=== PATIENT | female | born 1995 | race Caucasian/White ===

== ENCOUNTER 2022-09-02 09:03 | Inpatient (IN) | payer OTHER ==
[~2022-09-02] VITALS: Ht 172.7 cm; Wt 68.0 kg
[~2022-09-02 09:03] MED LIST: IBUP-1969 PO; ONDA-8 TL
--- NOTE | 2022-09-02 09:09 | NUR ---
Patient to ER bed 6 to gown for evaluation. Side rails up. Report given to .
[2022-09-02 09:10] VITALS: BP_SYST 106
--- NOTE | 2022-09-02 09:10 | NUR ---
PT STATES STOMACH FLU LIKE SYMPTOMS SINCE 08/29, OTHER FAMILY MEMBERS WITH SAME. AWOKE TODAY WITH RIGHT LOWER QUADRANT PAIN, STABBING/SHARP PAIN. NON-RADIATING. SUDDEN ONSET TODAY.
--- NOTE | 2022-09-02 09:10 | NUR ---
ER at bedside examining patient.
[2022-09-02] MEDS ORDERED: MORPHINE 4 MG INJ. 4 MG/ML VIAL IVP ONE ×2 (09:30→11:15)
[2022-09-02] MEDS ORDERED: NACL 0.9% 1,000 ML IV ONE (09:30)
[2022-09-02] MEDS ORDERED: ONDANSETRON HCL 4 MG/2 ML VIAL IVP ONE ×2 (09:30→13:30)
[2022-09-02 09:41] LABS: BASOPHILS % (AUTO) 0.2 % (0.0-2.0); HEMATOCRIT 41.8 % (36-48); HEMOGLOBIN 14.7 g/dL (12.0-16.0); LYMPHOCYTES # (AUTO) 0.8 K/uL (1.0-5.5); LYMPHOCYTES % (AUTO) 7.7 % (20.5-51.5); MEAN CORPUSCULAR HEMOGLOBIN 32 pg (27-31); MEAN CORPUSCULAR HGB CONC 35 % (32-36); MEAN CORPUSCULAR VOLUME 90 fL (79.0-98.0); MONOCYTES # (AUTO) 0.5 K/uL (0.0-1.0); MONOCYTES % (AUTO) 4.6 % (1.7-9.3); NEUTROPHILS # (AUTO) 9.5 K/uL (1.8-7.7); NEUTROPHILS % (AUTO) 87.5 % (40.0-70.0); PLATELET COUNT (AUTO) 160 K/uL (130-430); RED BLOOD CELL COUNT(AUTO) 4.65 MIL/uL (4.2-6.2); RED CELL DISTRIBUTION WIDTH 13.2 % (9.0-15.0); WHITE BLOOD COUNT (AUTO) 10.9 K/uL (4.8-10.8)
[2022-09-02] MEDS ORDERED: KETOROLAC TROMETHAMINE 15 MG VIAL IVP ONE (10:00)
--- NOTE | 2022-09-02 10:00 | NUR ---
PT STATES ONLY SLIGHT RELIEF FROM MORPHINE, DR RICHARDS AT BEDSIDE FOR RE-EVALUATION. GIVEN TORADOL ORDERED.
[2022-09-02 10:15] LABS: CALCIUM 8.6 mg/dL (8.4-11.0); CREATININE 0.66 mg/dL (0.55-1.30)
[2022-09-02 10:19] LABS: ALBUMIN 4.2 g/dL (3.4-4.8); TOTAL BILIRUBIN 0.8 mg/dL (0.0-1.0)
--- NOTE | 2022-09-02 10:28 | NUR ---
PT TAKEN TO RADIOLOGY VIA REINALDO
--- NOTE | 2022-09-02 10:37 | NUR ---
RETURNED TO ROOM FROM RADIOLOGY
[2022-09-02 10:52] LABS: BILIRUBIN,URINE NEGATIVE (NEGATIVE); BLOOD, URINE NEGATIVE (NEGATIVE); COLOR,URINE YELLOW (YELLOW); GLUCOSE,URINE NEGATIVE (NEGATIVE); KETONES,URINE TRACE (NEGATIVE); LEUKOCYTE ESTERASE ,URINE NEGATIVE (NEGATIVE); NITRITE, URINE NEGATIVE (NEGATIVE); PROTEIN URINE NEGATIVE (NEGATIVE); UROBILINOGEN,URINE 0.2 (0.2-1.0)
--- NOTE | 2022-09-02 11:02 | NUR ---
DR RICHARDS IN FOR RE-ASSESSMENT. AWAITING FURTHER ORDERS
[2022-09-02 11:13] LABS: CLARITY/URINE CLEAR (CLEAR)
[2022-09-02] MEDS ORDERED: ONDANSETRON HCL 4 MG/2 ML VIAL IVP PRN ×2 (11:30→17:45)
[2022-09-02] MEDS ORDERED: MORPHINE 4 MG INJ. 4 MG/ML VIAL IVP PRN (11:30)
--- NOTE | 2022-09-02 11:34 | NUR ---
Admit bed requested Patient will be admitted to care of . Admitted to MED SURG unit. Diagnosis ACUTE APPENDICITIS Inpatient (Yes or No) Y Observation (Yes or No) N Orientation concerns or request close to nursing station (Yes or No) N Covid Status PENDING On vent or bipap N Isolation requirements N Needs a sitter N From Home (Yes or if No enter name of facility) YES Requires Dialysis (Yes or No) N Med Rec Completed (Yes of No) Y
--- NOTE | 2022-09-02 11:35 | NUR ---
PT TAKES NO HOME MEDICATIONS
--- NOTE | 2022-09-02 11:40 | NUR ---
DR RICHARDS EXPLAINING RESULTS OF CT TO PT AND PTS MOTHER.
[2022-09-02] MEDS ORDERED: PIPERACILLIN/TAZOBACTAM 3.375 GM/VIAL (ZOSYN) IV ONE (11:51)
--- NOTE | 2022-09-02 11:58 | NUR ---
LAB AT BEDSIDE DRAWING BLOOD CULTURES.
--- NOTE | 2022-09-02 12:22 | NUR ---
SPOKE WITH DR TOBIN AND DR MOLINA. DR TOBIN SPEAKING WITH DR RICHARDS AT THIS TIME. PTS LAST INTAKE WAS YESTERDAY AT 2100
--- NOTE | 2022-09-02 12:34 | NUR ---
DR MOLINA AT BEDSIDE SPEAKING WITH PT.
--- NOTE | 2022-09-02 13:22 | NUR ---
ASSISTED UP TO RESTROOM, STEADY GAIT, PT COMPLAINS OF NAUSEA. DR RICHARDS NOTIFIED. AWAITING ORDERS
[2022-09-02 13:42] LABS: PROTHROMBIN TIME 9.9 SECS (9.5-12.5)
--- NOTE | 2022-09-02 13:47 | NUR ---
SURGERY IS SCHEDULED FOR [address] TOBIN
[2022-09-02] MEDS: PIPERACILLIN/TAZO 3.375 GM in NS 50 ML IV SCH (13:54)
--- NOTE | 2022-09-02 14:10 | NUR ---
RESTING QUIETLY, FAMILY AT BEDSIDE FOR SUPPORT
--- NOTE | 2022-09-02 15:26 | NUR ---
OR STAFF HERE TO TAKE PT TO SURGERY
--- NOTE | 2022-09-02 15:42 | NUR ---
PT IN ER STILL WAITING FOR OR CREW AND
--- NOTE | 2022-09-02 16:09 | NUR ---
TAKEN TO OPERATING ROOM BY OR STAFF, MOTHER SHOWN TO WAITING ROOM.
[2022-09-02] MEDS ORDERED: NS IRRIG SOLN 1000 ML IR ONE (16:35)
[2022-09-02] MEDS ORDERED: ONDANSETRON HCL 4 MG/2 ML VIAL ONE (16:35)
[2022-09-02] MEDS ORDERED: BUPIVACAINE /PF 0.5% 30 ML VIAL ONE (16:35)
[2022-09-02] MEDS ORDERED: MIDAZOLAM HCL 2 MG/2 ML VIAL (VERSED) ONE (16:35)
[2022-09-02] MEDS ORDERED: NS 1000 ML IV.SOLN IV ONE (16:35)
[2022-09-02] MEDS ORDERED: SEVOFLURANE 15 MIN GAS INH ONE (16:35)
[2022-09-02] MEDS ORDERED: LIDOCAINE/EPI MPF 1%1:200000 30 ML VIAL ONE (16:35)
[2022-09-02] MEDS ORDERED: fentaNYL CITRATE/PF 100 MCG/2 ML AMP ONE (16:35)
[2022-09-02] MEDS ORDERED: ROCURONIUM BROMIDE 10 MG/ML (ZEMURON) ONE ×2 (16:35→16:55)
[2022-09-02] MEDS ORDERED: PROPOFOL 200MG/ 20ML VIAL (DIPRIVAN) IV ONE (16:35)
--- NOTE | 2022-09-02 17:12 | NUR ---
REPORT GIVEN TO YUMIKO ON MED SURG FLOOR, HE WILL RECEIVE PT AFTER SURGERY
[2022-09-02] MEDS ORDERED: KETOROLAC TROMETHAMINE 30 MG VIAL IVP PRN (17:45)
[2022-09-02] MEDS ORDERED: NALOXONE HCL 0.4 MG/ML AMP (NARCAN) IVP PRN (17:45)
[2022-09-02] MEDS ORDERED: HYDROcodone/ACETAMIN 5-325 MG TAB (NORCO/ VICODIN) PO PRN (17:45)
[2022-09-02] MEDS: D5LR 1,000 ML IV SCH ×2 (18:10→21:41)
--- NOTE | 2022-09-02 19:10 | NUR ---
ADMISSION NOTE Received patient from ER via gurney, received report from RN. Patient admitted with diagnosis of Acute Appendicitis, s/p laprascopic appendectomy. Patient oriented to hospital routine, call light, toileting and safety-patient verbalized understanding. Report given to SUSIE Bergman at shift change.
--- NOTE | 2022-09-02 19:30 | NUR ---
CHANGE OF SHIFT; endorsed by day shift nurse Flavio S/P lap appy today. pt. awake, alert and oriented. family members at bedside. oriented to room, use of call light.IVF infusing on rt. arm.
[2022-09-02 19:40] VITALS: BP_SYST 92
[2022-09-02 20:00] VITALS: BP_SYST 92
--- NOTE | 2022-09-02 20:30 | NUR ---
NOTES: VS checked, Systolic BP @ 92, pt. said she rans on the low side and thats normal fo her. IV changed to D5 LR @ 150 cc/hr.
[2022-09-02 21:00] VITALS: BP_SYST 92
--- NOTE | 2022-09-02 23:00 | NUR ---
NOTES: pt. c/o post op pain, was about to give Toradol IV but BP 88/62, will hold for now. encouraged po fluids. will recheck later.pt. needs attended.
[2022-09-03] VITALS: BP_SYST 88
--- NOTE | 2022-09-03 00:15 | NUR ---
NOTES: rechecked VS BP 87/47 HR 71, pt. aymptomatic. IVF running @ 150 cc/hr. no pain at this time. call light at bedside.
[2022-09-03] MEDS ORDERED: PIPERACILLIN/TAZOBACTAM 3.375 GM/VIAL (ZOSYN) IV ONE (00:31)
[2022-09-03] MEDS: PIPERACILLIN/TAZO 3.375 GM in NS 50 ML IV SCH ×3 (00:47→09:47)
--- NOTE | 2022-09-03 02:30 | NUR ---
NOTES: pt. sleeping when checked.
[2022-09-03] MEDS: D5/0.45 NS 1,000 ML IV SCH ×2 (03:45→04:34)
--- NOTE | 2022-09-03 04:45 | NUR ---
NOTES: woke up , IVF changed. pt. anticipating to go home today. offered pain med and said she is ok, with tolerable pain. repositioned self and gave extra pillow for her lower back.
--- NOTE | 2022-09-03 06:35 | NUR ---
CLOSING NOTES; pt. ambulated to the restroom. IVF infusing well abdominal binder applied to her abdomen, incision intact. for further observation. waiting for MD to go home. call light at bedside. no pain .
[2022-09-03 08:00] VITALS: BP_SYST 104
[2022-09-03 08:13] LABS: BASOPHILS % (AUTO) 0.2 % (0.0-2.0); EOSINOPHILS % (AUTO) 0.6 % (0.0-4.0); HEMOGLOBIN 11.7 g/dL (12.0-16.0); LYMPHOCYTES % (AUTO) 26.3 % (20.5-51.5); MEAN CORPUSCULAR HEMOGLOBIN 32 pg (27-31); MEAN CORPUSCULAR HGB CONC 35 % (32-36); MEAN CORPUSCULAR VOLUME 90 fL (79.0-98.0); MONOCYTES # (AUTO) 0.2 K/uL (0.0-1.0); MONOCYTES % (AUTO) 5.6 % (1.7-9.3); NEUTROPHILS # (AUTO) 2.6 K/uL (1.8-7.7); NEUTROPHILS % (AUTO) 67.3 % (40.0-70.0); PLATELET COUNT (AUTO) 125 K/uL (130-430); RED BLOOD CELL COUNT(AUTO) 3.68 MIL/uL (4.2-6.2); RED CELL DISTRIBUTION WIDTH 13.1 % (9.0-15.0); WHITE BLOOD COUNT (AUTO) 3.9 K/uL (4.8-10.8)
[2022-09-03 08:26] LABS: ALBUMIN 2.9 g/dL (3.4-4.8); CALCIUM 7.9 mg/dL (8.4-11.0); CREATININE 0.65 mg/dL (0.55-1.30)
[2022-09-03 08:27] LABS: TOTAL BILIRUBIN 0.3 mg/dL (0.0-1.0)
[2022-09-03 10:09] VITALS: BP_SYST 104
--- NOTE | 2022-09-03 11:05 | NUR ---
PATIENT DC WITH DC PAPER AND MEDICATION PRESCRIPTION. PATIENT STABLE CONDITION.
== END 2022-09-03 11:00 | disposition home or self-care (01) | DRG 343 ==
LOC: SED 09:03 → SMU 11:28
PROVIDERS: ADMIT Internal Medicine; ATTEND Internal Medicine
PROC: 3E1M48Z Irrigation of Peritoneal Cavity using Irrigating Substance, Percutaneous Endoscopic Approach (ICD-10-PCS; 2022-09-02)
PROC: 0DTJ4ZZ Resection of Appendix, Percutaneous Endoscopic Approach (ICD-10-PCS; principal; 2022-09-02 16:35)
DX: K35.80 Unspecified acute appendicitis (principal); D64.9 Anemia, unspecified; Z20.822 Contact with and (suspected) exposure to COVID-19; Z79.1 Long term (current) use of non-steroidal anti-inflammatories (NSAID); Z79.899 Other long term (current) drug therapy
CPT/HCPCS: 36415; 76376; 80053; 81003; 83690; 84703; 85025; 85610-TC; 85730-TC; 87040; 87081; 88304; 96361; 96374; 96375; 96376; 99285; C1727; J1885; J2270; J2405; J2543; J2704; J3010; J3465; J3490; J7030; Q9967

== ENCOUNTER 2022-10-19 09:14 | Outpatient (CLI) | payer OTHER ==
[~2022-10-19 09:14] MED LIST changes: -IBUP-1969 PO
[2022-10-19 18:45] LABS: BASOPHILS % (AUTO) 0.8 % (0.0-2.0); EOSINOPHILS % (AUTO) 0.5 % (0.0-4.0); HEMOGLOBIN 14.3 g/dL (12.0-16.0); LYMPHOCYTES # (AUTO) 1.7 K/uL (1.0-5.5); LYMPHOCYTES % (AUTO) 34.9 % (20.5-51.5); MEAN CORPUSCULAR HEMOGLOBIN 32 pg (27-31); MEAN CORPUSCULAR HGB CONC 34 % (32-36); MEAN CORPUSCULAR VOLUME 93 fL (79.0-98.0); MONOCYTES # (AUTO) 0.3 K/uL (0.0-1.0); MONOCYTES % (AUTO) 5.5 % (1.7-9.3); NEUTROPHILS # (AUTO) 2.9 K/uL (1.8-7.7); NEUTROPHILS % (AUTO) 58.3 % (40.0-70.0); PLATELET COUNT (AUTO) 204 K/uL (130-430); RED BLOOD CELL COUNT(AUTO) 4.54 MIL/uL (4.2-6.2); RED CELL DISTRIBUTION WIDTH 13.9 % (9.0-15.0); WHITE BLOOD COUNT (AUTO) 4.9 K/uL (4.8-10.8)
[2022-10-19 19:03] LABS: ALBUMIN 4.3 g/dL (3.4-4.8); CALCIUM 8.8 mg/dL (8.4-11.0); CREATININE 0.89 mg/dL (0.55-1.30); THYROID STIMULATING HORMONE 0.76 uIu/mL (0.36-3.74); TOTAL BILIRUBIN 0.4 mg/dL (0.0-1.0)
== END 2022-10-19 19:27 | disposition home or self-care (01) ==
LOC: SLB 09:14
PROVIDERS: ATTEND Internal Medicine
DX: I10 Essential (primary) hypertension (principal); R73.9 Hyperglycemia, unspecified; E03.9 Hypothyroidism, unspecified; E55.9 Vitamin D deficiency, unspecified; E56.9 Vitamin deficiency, unspecified
CPT/HCPCS: 36415; 80053; 82306; 82607; 83037; 84443; 85025